=== PATIENT | female | born 1990 ===

== ENCOUNTER 2021-08-09 15:49 | Outpatient (CLI) | payer OTHER | END 2021-08-09 16:47 | disposition home or self-care (01) | LOC: PRENATAL 15:49 | PROVIDERS: ATTEND Obstetrics & Gynecology Maternal & Fetal Medicine | DX: O35.0XX0 Maternal care for (suspected) central nervous system malformation in fetus, not applicable or unspecified (principal); O35.3XX0 Maternal care for (suspected) damage to fetus from viral disease in mother, not applicable or unspecified; O34.219 Maternal care for unspecified type scar from previous cesarean delivery; Z3A.21 21 weeks gestation of pregnancy ==

== ENCOUNTER 2021-10-23 06:32 | Inpatient (IN) | payer OTHER ==
[~2021-10-23] VITALS: Ht 160 cm; Wt 1.4 kg
[2021-10-23] MEDS ORDERED: PRENATAL CAPLE1 EAC1 PO (06:35)
[2021-10-23] MEDS ORDERED: FOLIC ACID20 MG PO (06:36)
[2021-10-23] MEDS ORDERED: ANTIFUNGAL113 GM TOP (06:37)
== END 2021-10-27 16:51 | disposition home or self-care (01) | DRG 786 ==
LOC: LDR 06:32 → O/R 06:32 → OB/GYN 10-24 21:54
PROVIDERS: ADMIT Obstetrics & Gynecology; ATTEND Obstetrics & Gynecology
PROC: 4A1HXCZ Monitoring of Products of Conception, Cardiac Rate, External Approach (ICD-10-PCS; 2021-10-23)
PROC: BY4FZZZ Ultrasonography of Third Trimester, Single Fetus (ICD-10-PCS; 2021-10-23)
PROC: 10D00Z1 Extraction of Products of Conception, Low, Open Approach (ICD-10-PCS; principal; 2021-10-24 17:15)
DX: O42.013 Preterm premature rupture of membranes, onset of labor within 24 hours of rupture, third trimester (principal); O60.14X0 Preterm labor third trimester with preterm delivery third trimester, not applicable or unspecified; O41.03X0 Oligohydramnios, third trimester, not applicable or unspecified; O26.843 Uterine size-date discrepancy, third trimester; O36.8130 Decreased fetal movements, third trimester, not applicable or unspecified; O34.211 Maternal care for low transverse scar from previous cesarean delivery; Z3A.32 32 weeks gestation of pregnancy; Z37.0 Single live birth; Z20.822 Contact with and (suspected) exposure to COVID-19

== ENCOUNTER 2022-05-31 00:54 | Emergency (ER) | payer OTHER ==
[~2022-05-31] VITALS: Ht 160 cm; Wt 72.6 kg
[~2022-05-31 00:54] MED LIST: ANTIFUNGAL113 GM TOP; FOLIC ACID20 MG PO; PRENATAL CAPLE1 EAC1 PO
[2022-05-31] MEDS ORDERED: CEPHALEXIN500 MG PO (01:55)
== END 2022-05-31 02:01 ==
LOC: ER 00:54
DX: K08.89 Other specified disorders of teeth and supporting structures (principal)